=== PATIENT | female | born 2000 | race Caucasian/White ===

== ENCOUNTER 2021-01-25 09:45 | Emergency (ER) | payer BC, OTHER ==
[~2021-01-25] VITALS: Ht 165.1 cm; Wt 59.1 kg
[2021-01-25 09:51] VITALS: BP 100/58; TEMP 98.8
[2021-01-25 10:45] VITALS: PULSE 88
== END 2021-01-25 10:47 | disposition home or self-care (01) ==
LOC: COL.ER 09:45
DX: S93.401A Sprain of unspecified ligament of right ankle, initial encounter (principal); W17.89XA Other fall from one level to another, initial encounter